=== PATIENT | male | born 1935 | race Caucasian/White ===

== ENCOUNTER 2024-01-11 01:38 | Emergency (ER) | payer MEDICARE, OTHER, SELFPAY ==
[2024-01-11] VITALS (13 sets, daily range): BP systolic 75–148; BP diastolic 45–137; PULSE 62–103; RESP 14–20; TEMP 36.6; O2SAT 96–100
--- NOTE | ~2024-01-11 | CT_ITS ---
CT head without contrast Indication: Trauma Technique: Serial scans were obtained through the brain without the administration of contrast. Dose reduction technique was used on this scan by utilizing automated exposure control and iterative recon struction technique. The dose-length product (DLP) was 756.67 mGy-cm. Findings: There is no evidence of intracranial hemorrhage, mass lesion, or acute infarct. The ventri cles and subarachnoid spaces are dilated, consistent with mild atrophy. 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 There is no evidence of edema, mass effect or midline shift. The visu alized paranasal sinuses and mastoid air cells are clear. Impression: No intracranial hemorrhage, mass, or acute infarct. Atrophy and chronic white matter changes, as above. Reviewed, dictated and finalized at location . CHUTE RIGGER Impression: No intracranial hemorrhage, mass, or acute infarct. Atrophy and chronic white matter changes, as above.
--- NOTE | ~2024-01-11 | CT_ITS ---
CT Facial Bones and Cervical Spine Clinical Indication: Trauma Technique: Contiguous axial scans were obtained through the facial bones and cervical spine followed by coronal and sagittal reconstructions. Dose reduction technique was used on this scan by utilizing automated exposure control and iterative reconstruction technique. The dose-length product (DLP) was 606.00 mGy-cm. Findings: CT facial bones: No fractures are identified. The visualized paranasal sinuses are clear. Intraorbita l soft tissues appear normal. CT cervical spine: No acute fracture. There is minimal grade 1 anterolisthesis of C4 over C5, likely chronic. There is advanced degenerative disc narrowing throughout the cervical spine, especially at C 5-C6 and C6-C7. There is extensive facet arthropathy in the cervical spine, especially the right side at C2-C3 and C3-C4. There is right neural foraminal narrowing at C3-C4. There is left neural foramin al narrowing at C4-C5. There is bilateral neural foraminal narrowing at C5-C6 with probable minimal c anal stenosis. No prevertebral soft tissue swelling. Impression: No fracture is seen in the facial bones. No fracture or subluxation of the cervical spine. Degenerative spondylosis of the cervical spine, as above. Reviewed, dictated and finalized at location . WAGON OPERATOR Impression: No fracture is seen in the facial bones. No fracture or subluxation of the cervical spine. Degenerative spondylosis of the cervical spine, as above.
--- NOTE | 2024-01-11 01:50 | ED_ITS ---
HPI - General Adult General Chief complaint: Head Injury Stated complaint: TRIPPED, GLF, NASAL LAC,FOREHEAD HEMATOMA, LIP LAC Time Seen by Provider: 01/11/24 01:45 History of Present Illness HPI narrative: Patient is an 88-year-old male who presents to the emergency department this morning after a ground level fall that occurred at home. Patient states that he was in the bathroom and tripped falling face forward into a glass shower door. Denies any loss of consciousness. Admits that he does take Plavix. Patient is currently denying any pain or any additional injuries. Patient did sustain small hematoma to the forehead a complex laceration across his nose and nasal septum and upper lip. No additional symptoms or concerns at this time. Related Data Allergies Allergy/AdvReac Type Severity Reaction Status Date / Time No Known Allergies Allergy Verified 01/11/24 03:54 Review of Systems Review of Systems: All systems are reviewed and are negative unless stated otherwise in the HPI. Exam Narrative: General: Alert, awake, afebrile, in no acute distress. HEENT: PERRL, no rhinorrhea, no post nasal drip, oropharynx clear, hematoma to the soft tissue of the forehead, complex laceration to the right nasal cartilage extending through to the nasal septum, complex v-shaped laceration to the upper lip. Neck: Trachea midline, no JVD, no lymphadenopathy. Cardiovascular: Regular rate and rhythm, no murmurs, rubs or gallops, no peripheral edema. Respiratory: Clear to auscultation bilaterally, no tachypnea, no wheezing, no rhonchi, no rubs, no respiratory distress. Abdomen: Soft, nontender, nondistended, no rebound, no guarding, no peritoneal signs. Musculoskeletal: No joint swelling or deformity, normal muscle tone. Back: No midline tenderness to palpation over the cervical, thoracic or lumbar spine, no step-offs or deformities. Skin: No rashes or petechia, no signs of infection. Psychiatric: Alert and oriented, normal behavior and judgment for situation. Neurological: Alert and oriented to person, place, and time. Follows all commands. No focal deficits, speech is clear and fluent. Course Vital Signs Vital signs: Vital Signs Pulse Rate 98 01/11/24 01:41 Respiratory Rate 18 01/11/24 01:41 Blood Pressure 148/137 H 01/11/24 01:41 Pulse Oximetry 97 01/11/24 01:41 Oxygen Delivery Room Air 01/11/24 01:41 Pulse Rate 63 01/11/24 07:07 Respiratory Rate 18 01/11/24 07:07 Blood Pressure 98/60 L 01/11/24 07:07 Pulse Oximetry 98 01/11/24 07:07 Oxygen Delivery Room Air 01/11/24 01:41 Medical Decision Making MDM Narrative Medical decision making narrative: The patient was evaluated by myself in the emergency department. History is obtained from patient who is an independent historian and physical exam was performed. External medical records were reviewed at this time. IV was established and pertinent tests were ordered. Patient was administered a 1 L IV fluid bolus with normal saline due to a blood pressure of 86/45. Repeat blood pressure is 104/52 mmHg after 1 L bolus. Patient with continued on maintenance at a rate of 100 cc/hour. Imaging studies obtained included CT brain, CT cervical spine and CT facial bones without IV contrast which was independently interpreted by me revealing no acute bleed, fractures or dislocations, which is pending final radiology interpretation. Differential diagnosis considerations include fractures, dislocations, intracranial hemorrhage, lacerations, abrasions. Comorbidities impacting this visit include none. I have evaluated and discussed social determinants of health with the patient that could potentially impact subsequent diagnosis and treatment plans. On repeat assessment of the patient, reevaluation revealed that the patient is doing well and is in no acute distress. Patient symptoms have improved since he arrived to our emergency department. Repeat vital signs were all reviewed and noted to be stable. Differential diagnosis and treatment plan were discussed with the patient at bedside. Patient agrees with discussion and after shared medical decision making agrees with transfer for ENT repair of his complex nasal laceration. All questions were answered to the patient's satisfaction. Diagnostic Radiologist transfer line was contacted at [phone] and I did speak with the on-call ED physician Dr. Brandt who accepted transfer as an ED to ED transfer. Patient and patient's who is currently present at bedside were updated and are agreeable with this. Patient is currently resting comfortably pending transfer to [facility]. Vital Signs Vital Signs: Vital Signs Pulse Rate 98 01/11/24 01:41 Respiratory Rate 18 01/11/24 01:41 Blood Pressure 148/137 H 01/11/24 01:41 Pulse Oximetry 97 01/11/24 01:41 Oxygen Delivery Room Air 01/11/24 01:41 Pulse Rate 63 01/11/24 07:07 Respiratory Rate 18 01/11/24 07:07 Blood Pressure 98/60 L 01/11/24 07:07 Pulse Oximetry 98 01/11/24 07:07 Oxygen Delivery Room Air 01/11/24 01:41 Discharge Plan Discharge Clinical Impression: Closed head injury, Facial trauma, Complex laceration of nose Patient Disposition: Acute Care Hospital Condition: Improved Follow-up/Referrals: Marlen,Bertha Montejo MD [Primary Care Provider] - Time of Disposition: 03:18
[2024-01-11] MEDS: SODIUM CHLORIDE 0.9% IV 1,000 ML 999 ML (02:47)
[2024-01-11] MEDS: TETANUS,DIPHTHERIA,AC PERTUSSIS ADULT (0.5 ML) BOOSTRIX IM (02:48)
--- NOTE | 2024-01-11 03:26 | PC.NURSE ---
Pt and pt asked if it would be possible for pt to be transferred to [facility] instead of [facility]. Pts states all of pts medical history is at [facility]. Dr. Garcia notifed, she states she will speak with pt.
--- NOTE | 2024-01-11 04:02 | PC.NURSE ---
Pt requested his sign consent for transfer, form signed by at [id number]
[2024-01-11] MEDS: SODIUM CHLORIDE 0.9% IV 1,000 ML 150 ML IV CONT (04:03)
--- NOTE | 2024-01-11 05:21 | PC.NURSE ---
Spoke with law secretary Dariana, she states ambulances ETA moved from [phone] to [phone]
--- NOTE | 2024-01-11 05:29 | PC.NURSE ---
Report called to [facility] at [phone]
== END 2024-01-11 11:42 | disposition short-term general hospital (02) ==
PROVIDERS: Emergency Provider Emergency Medicine; PCP Internal Medicine Rheumatology
DX: S01.21XA Laceration without foreign body of nose, initial encounter (principal); Z23 Encounter for immunization; Z79.02 Long term (current) use of antithrombotics/antiplatelets; M47.812 Spondylosis without myelopathy or radiculopathy, cervical region; W01.198A Fall on same level from slipping, tripping and stumbling with subsequent striking against other object, initial encounter
CPT/HCPCS: 70450; 70486; 72125; 90471; 90715; 96360; 96361; 99285; J7030

== ENCOUNTER 2024-02-12 10:59 | Emergency (ER) | payer MEDICARE, OTHER, SELFPAY ==
--- NOTE | 2024-02-12 11:04 | ED.EYEPROB ---
HPI - Eye Problem General Chief complaint: Eye Problems Stated complaint: Eye Problems Time Seen by Provider: 02/12/24 11:34 Source: patient and RN notes reviewed Mode of arrival: ambulatory Limitations: no limitations History of Present Illness HPI Narrative: 89-year-old male presents with concern for rash on the right side of his face, eyelid swelling and slightly blurry vision in the a right eye reports symptoms started yesterday. Reports the rash is slightly irritating. Denies general malaise, fever MD chief complaint: other (rash) Related Data Home Medications ?Medication ?Instructions ?Recorded ?Confirmed ?Last Taken ?Type acetaminophen 325 mg tablet 650 mg PO Q6H PRN Pain 01/21/24 01/21/24 Unknown History cholecalciferol (vitamin D3) 25 50 mcg PO DAILY 01/21/24 01/21/24 01/21/24 08:18 History mcg (1,000 unit) tablet cyanocobalamin (vitamin B-12) 500 500 mcg PO DAILY 01/21/24 01/21/24 01/21/24 08:10 History mcg tablet ferrous sulfate 325 mg (65 mg 325 mg PO QNOON 01/21/24 01/21/24 01/20/24 13:16 History iron) tablet melatonin 3 mg tablet 3 mg PO HS PRN Insomnia 01/21/24 01/21/24 01/20/24 19:35 History sennosides 8.6 mg-docusate sodium 1 tablet PO DAILY 01/21/24 01/21/24 01/21/24 08:11 History 50 mg tablet (Senna-S) sodium chloride 0.65 % nasal spray 1 spray intranasal Q1H PRN Dry Nose 01/21/24 01/21/24 Unknown History aerosol (Saline Nasal) trazodone 100 mg tablet 100 mg PO HS 01/21/24 01/21/24 01/20/24 19:35 History esomeprazole magnesium 20 mg mg 02/12/24 Unknown History capsule,delayed release evolocumab 140 mg/mL subcutaneous mg subcut 02/12/24 Unknown History syringe (Repatha Syringe) Allergies Allergy/AdvReac Type Severity Reaction Status Date / Time apixaban Allergy Itching Verified 02/12/24 11:23 hydrochlorothiazide Allergy Unknown Verified 02/12/24 11:23 [id number] Reductase Allergy Muscle Pain Verified 02/12/24 11:23 Inhibitor Review of Systems Review of Systems: CONSTITUTIONAL: Denies malaise, chills, sweats, or fever. EYES: Reports blurry vision in the right eye, right eyelid redness and swelling ENT: Denies rhinorrhea, congestion, sinus pain, otalgia or sore throat. SKIN: Reports rash on the right side of the face NEUROLOGIC: Denies numbness, weakness, or headache. PSYCHIATRIC: Denies anxiety or depression. All systems reviewed & are unremarkable except as noted in HPI and below PMFSH Past Medical History Medical History Impaired cognition Family History Family History Other Unknown family medical history Social History Social History Smoking status: Never smoker Alcohol intake: never Substance use: never Substance use type: does not use Do You Feel Safe in your Home?: Yes Lack of Transportation: No Lack of Food: Never True Current Housing: I Have Housing Concerned About Future Housing: No Difficulty Paying Gas/Electric Bills: No Difficulty Paying for Meds: No Currently Unemployed: No Education: High School Diploma/GED Difficulty w/ Childcare or Family Care: No Spiritual care concerns: No Comments At time of signature, agree with nursing past medical, surgical, social and family history. There is no relevant family history pertinent to the presenting complaint Exam Narrative: GENERAL: Well-appearing, well-nourished, and in no acute distress. HEAD: Normocephalic, atraumatic. EYES: PERRLA, sclera clear, and EOMI. Right conjunctivae injected. Right Upper and lower eyelid mildly erythematous and edematous ENT: Nares clear, turbinates pink, no rhinorrhea or epistaxis. Mucous membranes moist. TM pearly chung with sharp light reflex bilaterally; no tragal tenderness. NECK: Supple. CHEST: No respiratory distress. Speaks in full sentences. HEART: Regular rate and rhythm. SKIN: Warm, dry vesicular rash noted to the right forehead, congregational, cheek, nose, not crossing midline at any point on the face NEURO: Alert and oriented x3. PSYCH: Normal mood and affect Course Course Emergency Course: Patient is aware of diagnosis, understands and agrees to treatment plan. Anticipatory guidance given. Patient agrees to follow-up as directed and is aware of reasons to seek care at the emergency department. Portions of this record may have been created with voice recognition software Level of Care: Express Care Visit Vital Signs Vital signs: Reviewed. MDM - Eye Problem MDM Narrative Medical decision making narrative: Consideration of the following conditions may be warranted for the presenting problem, they are not final diagnoses: Bacterial conjunctivitis, allergic conjunctivitis, viral conjunctivitis, foreign body, blepharitis, chalazion, hordeolum, corneal abrasion, preseptal cellulitis, orbital cellulitis, shingles, cellulitis, bacterial infection, dermatitis. No evidence of proptosis, ophthalmoplegia, vision loss, pain with eye movement. Exam findings show no acute concerns or changes; patient is non-toxic appearing and is in no distress. Patient is appropriate for outpatient treatment and follow-up. Critical Care Time Critical Care Time Critical Care Time: No Discharge Plan Discharge Clinical Impression: Shingles Patient Disposition: Home, Self-Care Condition: Stable Instructions: Shingles (ED) Additional Instructions: Take Tylenol as needed for pain, body aches, fever. Take medication as prescribed Shingles pain can last weeks. If your pain persists after antiviral medication is complete please follow-up with your primary care provider for a long-term pain control plan. Follow-up with your doctor in the next 2 to 3 days. Go to the emergency room if you have any urgent concerns. Patient Language: Sinhala Prescriptions: New valacyclovir 1 gram tablet 1,000 mg PO DAILY 7 Days Qty: 7 0RF No Action esomeprazole magnesium 20 mg capsule,delayed release(DR/EC) Repatha Syringe 140 mg/mL syringe SUBCUT acetaminophen 325 mg Tablet 650 mg PO Q6H PRN (Reason: Pain) sennosides-docusate sodium [Senna-S] 8.6-50 mg Tablet 1 tablet PO DAILY melatonin 3 mg Tablet 3 mg PO HS PRN (Reason: Insomnia) cyanocobalamin (vitamin B-12) 500 mcg Tablet 500 mcg PO DAILY trazodone 100 mg Tablet 100 mg PO HS ferrous sulfate 325 mg (65 mg iron) Tablet 325 mg PO QNOON Rx Instructions: Give after lunch Saline Nasal 0.65 % Aerosol,[place] 1 spray INTRANASAL Q1H PRN (Reason: Dry Nose) cholecalciferol (vitamin D3) 25 mcg (1,000 unit) Tablet 50 mcg PO DAILY losartan 25 mg Tablet 12.5 mg PO BID 30 Days Qty: 30 0RF carvedilol 12.5 mg Tablet 12.5 mg PO BID Qty: 60 0RF Rx Instructions: must administer with a meal/food Follow-up/Referrals: PHYSICIAN,TRAINING ENGINEER [Primary Care Provider] - Time of Disposition: 11:44
[2024-02-12 11:19] VITALS: BP 99/73; PULSE 68; RESP 16; TEMP 37.2; O2SAT 97
== END 2024-02-12 11:46 | disposition home or self-care (01) ==
PROVIDERS: Emergency Provider Nurse Practitioner
DX: B02.9 Zoster without complications (principal)
CPT/HCPCS: 99213; G0463

== ENCOUNTER 2024-02-14 12:51 | Emergency (ER) | payer MEDICARE, OTHER, SELFPAY ==
--- NOTE | ~2024-02-14 | XR_ITS ---
EXAMINATION: XR chest 2V Exam Date/Time: 02/14/2024 17:45 BAG CUTTER HISTORY: WEAKNESS Comparison: None. RESULT: Lines, tubes, and devices: Intact sternotomy wires. Mediastinal surgical clips. Partially visualized left shoulder arthroplasty hardware. Lungs and pleura: Mild diffuse reticular opacities and patchy scattered groundglass opacities. Subse gmental airspace disease in the bilateral lower lungs. Mild bilateral costophrenic angle blunting. Cardiomediastinal silhouette: Stable. Other: No acute osseous or upper abdominal finding. Severe degenerative change in the right shoulder . IMPRESSION: Pulmonary opacities likely represent mild pulmonary edema, with likely small bilateral effusions. Seg mental bibasilar atelectasis/consolidation. Reviewed, dictated and finalized at location K. CUTTER IMPRESSION: Pulmonary opacities likely represent mild pulmonary edema, with likely small bi lateral effusions. Segmental bibasilar atelectasis/consolidation.
--- NOTE | ~2024-02-14 | CT_ITS ---
EXAMINATION: CT orbit BI w con DATE: 02/14/2024 18:20 INDICATION: R eye swelling/pain . TECHNIQUE: Computed tomography (CT) of the facial bones and maxillofacial region was performed withou t intravenous contrast. Automated exposure control and iterative reconstruction technique were employ ed. The dose-length product was 287.11 mGy-cm. COMPARISON: None. FINDINGS: Soft Tissues: Soft tissue swelling over the right orbit, right cheek and right parotid. Facial bones: No acute fracture. No lytic or blastic process. Eyes: The globes are intact. The soft tissue planes of the orbits are maintained. Paranasal Sinuses: Mild mucosal thickening in the right maxillary sinus. Foreign Bodies: No radiopaque foreign bodies. Other Findings: Periapical lucency with cortical breakthrough involving the root of a right maxillary premolar, without definite adjacent fluid collection noting that there is obscuration from metal art ifact. IMPRESSION: Right periorbital/preseptal cellulitis and/or edema, with associated swelling of the right cheek. Inflammatory changes extend into or from the right parotid gland, correlate for clinical findings of parotiditis. Periodontal disease. No definite odontogenic abscess detected. Reviewed, dictated and finalized at location K. CE PROFESSIONAL IMPRESSION: Right periorbital/preseptal cellulitis and/or edema, with associated swelling o f the right cheek. Inflammatory changes extend into or from the right parotid gland, correlate for clinical findings of parotiditis. Periodontal disease. No definite odontogenic abscess detected.
--- NOTE | ~2024-02-14 | CT_ITS ---
EXAMINATION: CT brain wo con DATE: 02/14/2024 18:20 INDICATION: AMS . TECHNIQUE: Computed tomography (CT) of the head was performed without intravenous contrast. The mA wa s adjusted according to patient size. Iterative reconstruction technique was employed. The dose-lengt h product was 681.00 mGy-cm. COMPARISON: 02/14/2024. FINDINGS: No acute intracranial hemorrhage or extra-axial fluid collection. No hydrocephalus, mass, or herniation. No acute ischemic infarct. Unremarkable dural venous sinus attenuation. No acute osseous abnormality. Soft tissue swelling over the right orbit and right carotid. The aerated spaces are clear. Moderate atrophy and chronic white matter change. Atherosclerotic intracranial calcification. Bilater al lens replacements. IMPRESSION: No acute intracranial process. Reviewed, dictated and finalized at location K. ANALYSIS WELL LOGGING OPERATOR
[2024-02-14 13:05] VITALS: BP 117/73; PULSE 73; RESP 16; TEMP 36.6; O2SAT 100
--- NOTE | 2024-02-14 14:19 | PC.NURSE ---
pt spouse states that home health nurse said he needed to be evaluated due to a rapid decline in ADLs shingles to the right face, increased lethargy and weakness, incontinence. patient not eating or drinking well at home. patient was diagnosed with shingles on Wednesday.
[2024-02-14 16:01] LABS: Basophils Percent Auto 0.5 % (0.2-1.2); Eosinophils Percent Auto 0.5 % (0-4.4); Hematocrit 30.7 % (42.0-52.0); Hemoglobin 9.6 g/dL (14.0-18.0); Immature Granulocyte Absolute 0.02 K/mm3 (0.00-0.031); Immature Granulocyte Percent A 0.3 % (0-0.5); Lymphocytes Absolute Auto 1.38 K/mm3 (0.9-3.2); Mean Corpuscular HGB Conc 31.3 g/dl (32-36); Mean Corpuscular Volume 89.5 fl (80-100); Mean Platelet Volume 8.9 fl (7.4-10.4); Monocytes Absolute Auto 0.9 K/mm3 (0.1-0.6); Monocytes Percent Auto 15.2 % (2.6-8.5); Neutrophils Absolute Auto 3.4 K/mm3 (1.3-6.7); Neutrophils Percent Auto 59.5 % (45.5-73.1); Platelet Count Result 275 k/mm3 (150-375); Red Blood Count 3.43 M/mm3 (4.6-6.20); White Blood Count 5.7 K/mm3 (4.5-10.0)
[2024-02-14 16:05] LABS: Add Urine Microscopic? YES; Appearance Urine Clear (Clear); Bacteria Urine None Seen /hpf; Bilirubin Urine Negative (Negative); Blood Urine Negative (Negative); Color Urine Yellow (Yellow); Glucose Urine UA Negative (Negative); Ketones Urine Negative (Negative); Leukocyte Esterase Ur Negative LEU/UL (Negative); Nitrate Urine Negative (Negative); Non Pathogenic Casts 0-2; Protein Urine 1+ mg/dL (Negative); Specific Grav Ur 1.022 (1.001-1.035); Squamous Epithelial Cell Urine None Seen /hpf (Few); Urobilinogen Urine 0.2 mg/dL (<2.0); WBC Urine 0-5 /hpf (0-3); pH Urine 5.5 (5.0-9.0)
[2024-02-14 16:09] LABS: Alanine Aminotransferase 10 U/L (6-50); Albumin Level 3.3 g/dL (3.5-5.1); Alkaline Phosphatase 67 U/L (38-126); Anion Gap 2 mmol/L (4-12); Aspartate Amino Transferase 20 U/L (17-59); Bilirubin,Total 0.5 mg/dL (0.2-1.3); Blood Urea Nitrogen 20 mg/dL (9-20); Calcium 8.6 mg/dL (8.4-10.2); Carbon Dioxide 27 mmol/L (22-30); Chloride 103 mmol/L (98-107); Estimated Glomerular Filt Rate 41; Glucose 104 mg/dL (65-110); Potassium 4.5 mmol/L (3.4-5.0); Sodium 132 mmol/L (137-145)
--- NOTE | 2024-02-14 17:28 | ED_ITS ---
HPI - General Adult General Chief complaint: Urogenital-Male Stated complaint: uti Time Seen by Provider: 02/14/24 14:21 History of Present Illness HPI narrative: 89-year-old male presenting with generalized weakness. His is at bedside and helps with the history. States that he was recently at a rehab facility after a fall. He came home about a week ago and since that time has had a decline especially over the last couple of days. States that he has weak and has been having trouble with his walker. He is on a new modified diet and has not been drinking the thickened fluids but he is still eating. States that he was diagnosed with shingles 2 days ago by Urgent Care and started on valacyclovir. States that then they spoke to his eye doctor who started him on erythromycin ointment. States that he continues to have swelling around the right eye and some discomfort with extraocular eye movements. No further complaints. Related Data Home Medications ?Medication ?Instructions ?Recorded ?Confirmed ?Last Taken ?Type acetaminophen 325 mg tablet 650 mg PO Q6H PRN Pain 01/21/24 01/21/24 Unknown History cholecalciferol (vitamin D3) 25 50 mcg PO DAILY 01/21/24 01/21/24 01/21/24 08:18 History mcg (1,000 unit) tablet cyanocobalamin (vitamin B-12) 500 500 mcg PO DAILY 01/21/24 01/21/24 01/21/24 08:10 History mcg tablet ferrous sulfate 325 mg (65 mg 325 mg PO QNOON 01/21/24 01/21/24 01/20/24 13:16 History iron) tablet melatonin 3 mg tablet 3 mg PO HS PRN Insomnia 01/21/24 01/21/24 01/20/24 19:35 History sennosides 8.6 mg-docusate sodium 1 tablet PO DAILY 01/21/24 01/21/24 01/21/24 08:11 History 50 mg tablet (Senna-S) sodium chloride 0.65 % nasal spray 1 spray intranasal Q1H PRN Dry Nose 01/21/24 01/21/24 Unknown History aerosol (Saline Nasal) trazodone 100 mg tablet 100 mg PO HS 01/21/24 01/21/24 01/20/24 19:35 History esomeprazole magnesium 20 mg mg 02/12/24 Unknown History capsule,delayed release evolocumab 140 mg/mL subcutaneous mg subcut 02/12/24 Unknown History syringe (Repatha Syringe) Allergies Allergy/AdvReac Type Severity Reaction Status Date / Time apixaban Allergy Itching Verified 02/12/24 11:23 hydrochlorothiazide Allergy Unknown Verified 02/12/24 11:23 [id number] Reductase Allergy Muscle Pain Verified 02/12/24 11:23 Inhibitor Review of Systems 2 Review of Systems: All systems reviewed & are unremarkable except as noted in HPI and below PMFSH Past Medical History Medical History Impaired cognition Family History Family History Other Unknown family medical history Social History Social History Smoking status: Never smoker Alcohol intake: never Substance use: never Substance use type: does not use Do You Feel Safe in your Home?: Yes Lack of Transportation: No Lack of Food: Never True Current Housing: I Have Housing Concerned About Future Housing: No Difficulty Paying Gas/Electric Bills: No Difficulty Paying for Meds: No Currently Unemployed: No Education: High School Diploma/GED Difficulty w/ Childcare or Family Care: No Spiritual care concerns: No Exam 2 Narrative: GENERAL: Chronically ill-appearing, no acute distress HEAD: Normocephalic, atraumatic. EYES: PERRLA and EOMI. Fluorescein stain shows no abrasions or corneal lacerations ENT: right eye with periorbital edema, injected conjunctiva NECK: Supple. CHEST: No respiratory distress. HEART: Regular rate and rhythm EXTREMITIES: Normal range of motion. No edema. SKIN: Warm, dry, no rash. NEURO: Alert and oriented x3. PSYCH: Normal mood and affect. Course Vital Signs Vital signs: Vital Signs Temperature 97.8 F 02/14/24 13:05 Pulse Rate 73 02/14/24 13:05 Respiratory Rate 16 02/14/24 13:05 Blood Pressure 117/73 02/14/24 13:05 Pulse Oximetry 100 02/14/24 13:05 Temperature 97.8 F 02/14/24 13:05 Pulse Rate 86 02/14/24 18:48 Respiratory Rate 16 02/14/24 18:48 Blood Pressure 166/80 H 02/14/24 18:48 Pulse Oximetry 100 02/14/24 18:48 Medical Decision Making MDM Narrative Medical decision making narrative: 89-year-old male presenting with generalized weakness and right eye swelling and pain. Fluorescein stain shows no corneal abrasions, ulcers, lacerations. CT brain and bilateral orbits shows right-sided periorbital cellulitis and parotiditis. Blood work without significant abnormalities. Baseline CKD is noted. Will start the patient on Augmentin and bactrim for periorbital cellulitis. Discussed appropriate supportive care and return precautions. Recommend close PCP and Ophthalmology follow-up. Patient and his are agreeable with this plan. Discharged in stable condition. Medical Records Medical records reviewed: Yes I reviewed the external patient's medical records. Vital Signs Vital Signs: Vital Signs Temperature 97.8 F 02/14/24 13:05 Pulse Rate 73 02/14/24 13:05 Respiratory Rate 16 02/14/24 13:05 Blood Pressure 117/73 02/14/24 13:05 Pulse Oximetry 100 02/14/24 13:05 Temperature 97.8 F 02/14/24 13:05 Pulse Rate 86 02/14/24 18:48 Respiratory Rate 16 02/14/24 18:48 Blood Pressure 166/80 H 02/14/24 18:48 Pulse Oximetry 100 02/14/24 18:48 Lab Data Lab results reviewed: Yes I reviewed the patient's lab results. 02/14/24 15:51 02/14/24 15:51 Labs: Lab Results 02/14/24 Range/Units 15:51 WBC 5.7 (4.5-10.0) K/mm3 RBC 3.43 L (4.6-6.20) M/mm3 Hgb 9.6 L (14.0-18.0) g/dL Hct 30.7 L (42.0-52.0) % MCV 89.5 (80-100) fl MCH 28.0 (26-34) pg MCHC 31.3 L (32-36) g/dl RDW 16.0 H (11.5-14.5) % Plt Count 275 (150-375) k/mm3 MPV 8.9 (7.4-10.4) fl Immature Gran % (Auto) 0.3 (0-0.5) % Neut % (Auto) 59.5 (45.5-73.1) % Lymph % (Auto) 24.0 (18.3-44.2) % [place] % (Auto) 15.2 H (2.6-8.5) % Eos % (Auto) 0.5 (0-4.4) % Baso % (Auto) 0.5 (0.2-1.2) % Lymph # (Auto) 1.38 (0.9-3.2) K/mm3 [place] # (Auto) 0.9 H (0.1-0.6) K/mm3 Eos # (Auto) 0.0 (0-0.3) K/mm3 Baso # (Auto) 0.0 (0.0-0.1) K/mm3 Abs Immat Gran (auto) 0.02 (0.00-0.031) K/mm3 Absolute Neuts (auto) 3.4 (1.3-6.7) K/mm3 Absolute Nucleated RBC 0.000 (0.0-0.012) K/mm3 Nucleated RBC % 0.0 (0.0-0.2) % Sodium 132 L (137-145) mmol/L Potassium 4.5 (3.4-5.0) mmol/L Chloride 103 (98-107) mmol/L Carbon Dioxide 27 (22-30) mmol/L Anion Gap 2 L (4-12) mmol/L BUN 20 (9-20) mg/dL Creatinine 1.60 H (0.7-1.3) mg/dL Estim Creat Clear Calc Not Reportable Estimated GFR 41 L (59 - ) Glucose 104 (65-110) mg/dL Calcium 8.6 (8.4-10.2) mg/dL Total Bilirubin 0.5 (0.2-1.3) mg/dL AST 20 (17-59) U/L ALT 10 (6-50) U/L Alkaline Phosphatase 67 (38-126) U/L Total Protein 6.0 L (6.3-8.2) g/dL Albumin 3.3 L (3.5-5.1) g/dL Urine Color Yellow (Yellow) Urine Appearance Clear (Clear) Urine pH 5.5 (5.0-9.0) Ur Specific [place] 1.022 (1.001-1.035) Urine Protein 1+ H (Negative) mg/dL Urine Glucose (UA) Negative (Negative) mg/dL Urine Ketones Negative (Negative) mg/dL Ur Blood (Man) Negative (Negative) Urine Nitrate Negative (Negative) Urine Bilirubin Negative (Negative) Urine Urobilinogen 0.2 (<2.0) mg/dL Leukocyte Esterase Rfl Negative (Negative) ROXANNE/UL Urine RBC 3-5 H (0-2) /hpf Urine WBC 0-5 (0-3) /hpf Ur Squamous Epith Cells None seen (Few) /hpf Urine Bacteria None seen /hpf Urine Casts 0-2 Imaging Data Radiologist's impression: ITS Impressions Chest X-Ray 02/14/24 18:09 IMPRESSION: Pulmonary opacities likely represent mild pulmonary edema, with likely small bilateral effusions. Segmental bibasilar atelectasis/consolidation. Head CT 02/14/24 18:26 IMPRESSION: No acute intracranial process. Orbit CT 02/14/24 18:28 IMPRESSION: Right periorbital/preseptal cellulitis and/or edema, with associated swelling of the right cheek. Inflammatory changes extend into or from the right parotid gland, correlate for clinical findings of parotiditis. Periodontal disease. No definite odontogenic abscess detected. Critical Care Time Critical Care Time Critical Care Time: No Discharge Plan Discharge Clinical Impression: Periorbital cellulitis of right eye, Parotiditis Patient Disposition: Home, Self-Care Condition: Stable Instructions: Antibiotic Form, Periorbital Cellulitis (ED) Additional Instructions: the imaging today shows an infection involving the right side of your face around your eye and cheek. Please take the antibiotics as prescribed. Follow- up closely with your PCP and eye doctor. If your symptoms worsen or other concerning symptoms arise, please return to the ER. Patient Language: Welsh Prescriptions: New amoxicillin-pot clavulanate 875-125 mg tablet 1 tablet PO Q12H 7 Days Qty: 14 0RF sulfamethoxazole-trimethoprim [Bactrim DS] 800-160 mg tablet 1 tablet PO Q12H 7 Days Qty: 14 0RF No Action esomeprazole magnesium 20 mg capsule,delayed release(DR/EC) Repatha Syringe 140 mg/mL syringe SUBCUT valacyclovir 1 gram tablet 1,000 mg PO DAILY 7 Days Qty: 7 0RF acetaminophen 325 mg Tablet 650 mg PO Q6H PRN (Reason: Pain) sennosides-docusate sodium [Senna-S] 8.6-50 mg Tablet 1 tablet PO DAILY melatonin 3 mg Tablet 3 mg PO HS PRN (Reason: Insomnia) cyanocobalamin (vitamin B-12) 500 mcg Tablet 500 mcg PO DAILY trazodone 100 mg Tablet 100 mg PO HS ferrous sulfate 325 mg (65 mg iron) Tablet 325 mg PO QNOON Rx Instructions: Give after lunch Saline Nasal 0.65 % Aerosol,[place] 1 spray INTRANASAL Q1H PRN (Reason: Dry Nose) cholecalciferol (vitamin D3) 25 mcg (1,000 unit) Tablet 50 mcg PO DAILY losartan 25 mg Tablet 12.5 mg PO BID 30 Days Qty: 30 0RF carvedilol 12.5 mg Tablet 12.5 mg PO BID Qty: 60 0RF Rx Instructions: must administer with a meal/food Follow-up/Referrals: UNKNOWN,DOCTOR [Primary Care Provider] -
[2024-02-14] MEDS: SODIUM CHLORIDE 0.9% IV 1,000 ML 999 ML IV CONT (17:35)
--- NOTE | 2024-02-14 17:45 | PC.NURSE ---
Ordered eye medication and eye tray placed in pt. room for MD. MD Serrato notified.
[2024-02-14 18:48] VITALS: BP 166/80; PULSE 86; RESP 16; O2SAT 100
[2024-02-14 19:50] VITALS: BP 155/70; PULSE 85; RESP 16; O2SAT 98
--- NOTE | 2024-02-14 19:59 | PC.NURSE ---
nursing techn to bedside to place thumb spica splint.
--- NOTE | 2024-02-14 20:10 | PC.NURSE ---
MD Serrato at bedside. Will administer antibiotics when MD is done.
[2024-02-14] MEDS: AMOXICILLIN/CLAVULANATE K 875-125 MG TAB 1 TABLET PO (20:36)
[2024-02-14] MEDS: SULFAMETHOXAZOLE/TRIMETHOPRIM 800/160 MG DS TABLET 1 TAB PO (20:37)
--- NOTE | 2024-02-14 20:59 | PC.NURSE ---
Pt. transferred to using gait belt by this RN. During transfer, pt sustained a small skin tear to L. forearm. Pt. has pitting edema to this extremity. Serosangenous fluid drained from skin tear. Fluid drainage stopped. Arm dressed with antibiotic ointment, non-adherent telfa, gauze and wrapped. aware and verbalized that she will keep skin tear clean and dry and will monitor.
== END 2024-02-14 21:09 | disposition home or self-care (01) ==
PROVIDERS: Emergency Provider Emergency Medicine
DX: L03.213 Periorbital cellulitis (principal); K11.20 Sialoadenitis, unspecified; R53.1 Weakness; B02.9 Zoster without complications
CPT/HCPCS: 36415; 70450; 70481; 71046; 80053; 81001; 85025; 99284; A9270; J7030; Q9967

== ENCOUNTER 2025-01-11 19:59 | Emergency (ER) | payer MEDICARE, OTHER, SELFPAY ==
[2025-01-11 20:45] VITALS: BP 135/70; PULSE 78; RESP 16; TEMP 36.7; O2SAT 97
[2025-01-11] MEDS: CELLULOSE OXIDIZED 2 x 14 INCH 2 PKT XX (21:32)
--- NOTE | 2025-01-11 21:35 | ED.GENADULT ---
HPI - General Adult General Chief complaint: Fall Stated complaint: Fall in driveway, arm abrasions Time Seen by Provider: 01/11/25 21:10 History of Present Illness HPI narrative: 89-year-old male presents to the emergency department for evaluation after having a ground level fall. Patient states he was taking the garbage out and tripped causing a skin tear to the left forearm, right elbow and hematoma to the right anterior razo. 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 Patient denies striking head denies any loss of consciousness. Related Data Home Medications ?Medication ?Instructions ?Recorded ?Confirmed ?Last Taken ?Type cholecalciferol (vitamin D3) 25 50 mcg PO DAILY 01/21/24 03/18/24 01/21/24 08:18 History mcg (1,000 unit) tablet cyanocobalamin (vitamin B-12) 500 500 mcg PO DAILY 01/21/24 03/18/24 01/21/24 08:10 History mcg tablet ferrous sulfate 325 mg (65 mg 325 mg PO QNOON 01/21/24 03/18/24 01/20/24 13:16 History iron) tablet melatonin 3 mg tablet 3 mg PO HS PRN Insomnia 01/21/24 03/18/24 01/20/24 19:35 History sennosides 8.6 mg-docusate sodium 1 tablet PO DAILY 01/21/24 03/18/24 01/21/24 08:11 History 50 mg tablet (Senna-S) trazodone 100 mg tablet 100 mg PO HS 01/21/24 03/18/24 01/20/24 19:35 History Allergies Allergy/AdvReac Type Severity Reaction Status Date / Time apixaban Allergy Intermediate hives, rash Verified 03/18/24 06:32 Review of Systems Review of Systems: All systems reviewed & are unremarkable except as noted in HPI and below PMFSH Past Medical History Medical History Chronic anemia Chronic kidney disease, stage 3 Gastroesophageal reflux disease Valvular heart disease Paroxysmal atrial fibrillation Dementia Hypertension Family History Family History Other Unknown family medical history Social History Social History Social History: Surrogate medical decision maker: Ceasar Bourgeois, spouse ([phone]). Code status: Do not resuscitate. Smoking status: Unknown if ever smoked Alcohol intake: never Substance use: never Substance use type: does not use Do You Feel Safe in your Home?: Yes Lack of Transportation: No Lack of Food: Never True Current Housing: I Have Housing Concerned About Future Housing: No Difficulty Paying Gas/Electric Bills: No Difficulty Paying for Meds: No Currently Unemployed: No Education: High School Diploma/GED Difficulty w/ Childcare or Family Care: No Spiritual care concerns: No Course Vital Signs Vital signs: Vital Signs Temperature 98.0 F 01/11/25 20:45 Pulse Rate 78 01/11/25 20:45 Respiratory Rate 16 01/11/25 20:45 Blood Pressure 135/70 01/11/25 20:45 Pulse Oximetry 97 01/11/25 20:45 Oxygen Delivery Room Air 01/11/25 20:45 Temperature 98.0 F 01/11/25 20:45 Pulse Rate 78 01/11/25 20:45 Respiratory Rate 16 01/11/25 20:45 Blood Pressure 135/70 01/11/25 20:45 Pulse Oximetry 97 01/11/25 20:45 Oxygen Delivery Room Air 01/11/25 20:45 Procedures Laceration Laceration 1: Date: 01/11/25 Site: upper extremity Side (If applicable): left Size (cm): 5 Description: flap (skin tear with heavy bleeding) Pre-repair: wound explored and irrigated ====== Skin Level ====== Skin layer closed with: steri strips Technique: other (Surgicel and Tefla dressing) ====== Subcutaneous Layer ====== ====== Muscle Layer ====== ====== Tendon Layer ====== Laceration 2: Date: 01/11/25 Site: upper extremity Side (If applicable): right Size (cm): 4 Description: flap (skin tear) Depth: simple, single layer Pre-repair: wound explored and irrigated ====== Skin Level ====== Skin layer closed with: steri strips ====== Subcutaneous Layer ====== ====== Muscle Layer ====== ====== Tendon Layer ====== Medical Decision Making MDM Narrative Medical decision making narrative: 89-year-old male presents emergency department for evaluation for skin tears and leg hematoma. Patient is alert and oriented at his baseline. Patient denies any recent illnesses. Patient does states this is a mechanical fall. Wounds were dressed. Family was encouraged to have close follow-up with the primary care physician. Differential Diagnosis Differential Diagnosis: Hematoma, skin tear, laceration Vital Signs Vital Signs: Vital Signs Temperature 98.0 F 01/11/25 20:45 Pulse Rate 78 01/11/25 20:45 Respiratory Rate 16 01/11/25 20:45 Blood Pressure 135/70 01/11/25 20:45 Pulse Oximetry 97 01/11/25 20:45 Oxygen Delivery Room Air 01/11/25 20:45 Temperature 98.0 F 01/11/25 20:45 Pulse Rate 78 01/11/25 20:45 Respiratory Rate 16 01/11/25 20:45 Blood Pressure 135/70 01/11/25 20:45 Pulse Oximetry 97 01/11/25 20:45 Oxygen Delivery Room Air 01/11/25 20:45 Discharge Plan Discharge Clinical Impression: Multiple skin tears, Hematoma Patient Disposition: Home Condition: Stable Instructions: Antibiotic Form, Skin Avulsion (ED), Hematoma (ED) Additional Instructions: Remove the Kerlix dressing in approximately 12 hours. Close follow-up with your primary care physician for a wound check. If you have any worsening symptoms please call or return to the emergency department. Patient Language: Polish Prescriptions: No Action furosemide [Lasix] 20 mg tablet 20 mg PO BID 30 Days Qty: 60 0RF sennosides-docusate sodium [Senna-S] 8.6-50 mg Tablet 1 tablet PO DAILY melatonin 3 mg Tablet 3 mg PO HS PRN (Reason: Insomnia) cyanocobalamin (vitamin B-12) 500 mcg Tablet 500 mcg PO DAILY trazodone 100 mg Tablet 100 mg PO HS ferrous sulfate 325 mg (65 mg iron) Tablet 325 mg PO QNOON Rx Instructions: Give after lunch cholecalciferol (vitamin D3) 25 mcg (1,000 unit) Tablet 50 mcg PO DAILY losartan 25 mg Tablet 12.5 mg PO BID 30 Days Qty: 30 0RF carvedilol 12.5 mg Tablet 12.5 mg PO BID Qty: 60 0RF Rx Instructions: must administer with a meal/food Follow-up/Referrals: PHYSICIAN NOT ON STAFF,NONSTAFF [Primary Care Provider]
--- OUTSIDE RECORDS SUMMARY | 2025-01-11 21:53 | XMS_ITS | Encounter Summary ---
Author Organization [facility] Address 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
--- OUTSIDE RECORDS SUMMARY | 2025-01-11 21:53 | XMS_ITS | Encounter Summary ---
Author Organization [facility] Address [address] [place] [address] Care Team Providers Care Pullman Car Clerk Name Role Phone Unavailable Primary Care Provider Unavailabl e Encounter Details Date Type Department Care Team (Late st Contact Info) Description 03/10/1999 Outpatient Historical [facility] Bertha Gee MD Social History Tobacco Use Types Packs/Day Years Used Date Smoking Tobacco: Never Assessed Sex and Gender Information Value Date Recorded Sex Assigned at Not on file Legal Sex Male 3:03 AM WARRANTY MANAGER Gender Identity Not on file Sexual Orientation Not on file documented as of this encounter Plan of Treatment Not on file documented as of this encounter Visit Diagnoses Not on filedocumented in this encounter
--- OUTSIDE RECORDS SUMMARY | 2025-01-11 21:53 | XMS_ITS | Encounter Summary ---
Author Organization [facility] Address [address] [place] [address] Care Team Providers Care Anodizer Name Role Phone Unavailable Primary Care Provider Unavailabl e Encounter Details Date Type Department Care Team (Late st Contact Info) Description 03/09/2000 Outpatient Historical [facility] Bertha Gee MD Social History Tobacco Use Types Packs/Day Years Used Date Smoking Tobacco: Never Assessed Sex and Gender Information Value Date Recorded Sex Assigned at Not on file Legal Sex Male 3:03 AM CUSTOMS BROKERAGE MANAGER Gender Identity Not on file Sexual Orientation Not on file documented as of this encounter Plan of Treatment Not on file documented as of this encounter Visit Diagnoses Not on filedocumented in this encounter
--- OUTSIDE RECORDS SUMMARY | 2025-01-11 21:53 | XMS_ITS | Encounter Summary ---
Author Organization [facility] Address [address] [place] [address] Care Team Providers Care Sap Hana Architect Name Role Phone Unavailable Primary Care Provider Unavailabl e Encounter Details Date Type Department Care Team (Late st Contact Info) Description 12/31/1998 Outpatient Historical [facility] Bertha Gee MD Social History Tobacco Use Types Packs/Day Years Used Date Smoking Tobacco: Never Assessed Sex and Gender Information Value Date Recorded Sex Assigned at Not on file Legal Sex Male 3:03 AM SIGNALS INTELLIGENCE ANALYSIS MANAGER Gender Identity Not on file Sexual Orientation Not on file documented as of this encounter Plan of Treatment Not on file documented as of this encounter Visit Diagnoses Not on filedocumented in this encounter
--- OUTSIDE RECORDS SUMMARY | 2025-01-11 21:53 | XMS_ITS | Encounter Summary ---
Author Organization [facility] Address [address] [place] [address] Care Team Providers Care High Pressure Boiler Operator Name Role Phone Unavailable Primary Care Provider Unavailabl e Encounter Details Date Type Department Care Team (Late st Contact Info) Description 12/04/1999 Outpatient Historical [facility] Bertha Gee MD Social History Tobacco Use Types Packs/Day Years Used Date Smoking Tobacco: Never Assessed Sex and Gender Information Value Date Recorded Sex Assigned at Not on file Legal Sex Male 3:03 AM LOSS CONTROL ENGINEER Gender Identity Not on file Sexual Orientation Not on file documented as of this encounter Plan of Treatment Not on file documented as of this encounter Visit Diagnoses Not on filedocumented in this encounter
--- OUTSIDE RECORDS SUMMARY | 2025-01-11 21:53 | XMS_ITS | Encounter Summary ---
Author Organization [facility] Address 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
--- OUTSIDE RECORDS SUMMARY | 2025-01-11 21:53 | XMS_ITS | Encounter Summary ---
Author Organization [facility] Address 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
--- OUTSIDE RECORDS SUMMARY | 2025-01-11 21:53 | XMS_ITS | Clinical Summary ---
Author Organization [facility] Address [address] 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
--- OUTSIDE RECORDS SUMMARY | 2025-01-11 21:53 | XMS_ITS | Encounter Summary ---
Author Organization [facility] Address 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
--- OUTSIDE RECORDS SUMMARY | 2025-01-11 21:54 | XMS_ITS | Encounter Summary ---
Author Organization [facility] Address 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
--- OUTSIDE RECORDS SUMMARY | 2025-01-11 21:54 | XMS_ITS | Clinical Summary ---
Author Organization [facility] Address [address] [address] Care Team Providers Care Lay Out Inspector Name Role Phone Provider, No Pcp Primary Care Provider Unavailab le Source Comments [facility],non-owned Affiliates and Associated Physician Practices is amultiple site organization consisting of ambulatory clinics and hospital sitesin [place], [place], [place] and [place]. This disclosure is being madepursuant to the Care Everywhere program and may not contain all information available regarding this patient. Last updated 17.[facility] Allergies Active Allergy Reactions Criticality Noted Date Comments Apixaban Urticaria Medium 01/12/2024 Hmg-Coa-R Inhibitors Myalgias 01/12/2024 Hydrochlorothiazide Unknown 01/12/2024 Medications * Be aware that medications may not be up to date on this document. Alwaysverify current medications with the patient. potassium chloride ER 10 MEQ tablet Take 1 (one) tablet by mouth once daily 4 Active prazosin (Minipress) 1 MG capsule Take 1 (one) capsule by mouth 2 times daily Active Nutritional Supplements (Ensure Plus High Protein) LIQD Take 1 container by mouth 3 times daily 4 Active dabigatran (praDAXA) 75 MG capsule Take 1 (one) capsule by mouth 2 times daily 4 Active carvedilol (Coreg) 12.5 MG tablet Take 1 (one) tablet by mouth 2 times daily 4 Active white petroleum (Vaseline) ointment Apply to affected area at bedtime 4 Active vitamin D3 (Cholecalcifero l) 25 MCG (1000 UNITS) tablet Take 2 (two) tablets by mouth once daily 4 Active ferrous sulfate 325 (65 FE) MG tablet Take 1 (one) tablet by mouth once daily after lunch 4 Active cyanocobalamin (Cyanocobalamin ) 500 MCG tablet Take 1 (one) tablet by mouth once daily 4 Active senna-docusate (Senokot-S) 8.6-50 MG tablet Take 1 (one) tablet by mouth once daily 4 Active traZODone (Desyrel) 100 MG tablet Take 1 (one) tablet by mouth at bedtime 4 Active losartan (Cozaar) 25 MG tablet Take 1 (one) tablet by mouth 2 times daily 4 Active aspirin (Aspirin) 81 MG chew tablet Take 1 (one) tablet by mouth once daily 4 Active acetaminophen (Tylenol) 325 MG tablet Take 2 (two) tablets by mouth every 6 hours as needed Maximum allowable Acetaminophen amount = 4 Grams (4000 mg) / 24 hours. 4 Active saline nasal spray ([place]man; Baby Lodi) 0.65 % nasal spray [place] 1 (one) spray into each nostril every 1 hour as needed for Dry Nose Active melatonin 3 MG tablet Take 1 (one) tablet by mouth nightly as needed for Insomnia 4 Active Active Problems Problem Noted Date Diagnosed Date Severe protein-calorie malnutrition 01/19/2024 Concussion 01/18/2024 Acute blood loss anemia 01/16/2024 Agitation 01/16/2024 Impaired mobility and ADLs 01/16/2024 Dysphagia 01/16/2024 Acute encephalopathy 01/16/2024 Atrial fibrillation with RVR 01/15/2024 Shortness of breath 01/15/2024 Delirium 01/14/2024 MANJIT (acute kidney injury) 01/12/2024 Melena 01/11/2024 Fall, initial encounter 01/11/2024 Laceration of nose, initial encounter 01/11/2024 Anemia requiring transfusions 01/11/2024 Social History Tobacco Use Types Packs/Day Years Used Date Smoking Tobacco: Never Smokeless Tobacco: Never Tobacco Cessation:Counseling Given: Not Answered Alcohol Use Standard Drinks/Week Comments Not Currently 0 (1 standard drink = 0.6 oz pur e alcohol) AUDIT-C Answer Date Recorded Q1: How often do you have a drink containing alcohol? Never 01/12/2024 Q2: How many drinks containi ng alcohol do you have on a typical day when you are drinking? Patient does not drink Q3: How often do you have si x or more drinks on one occasion? Never 01/12/2024 Overall Financial Resource Strain (CARDIA) Answe r Date Recorded How hard is it for you to pa y for the very basics like food, housing, medical care, and heating? Not hard at all 01/12/2024 [facility] - Occupational Stress Questionnaire Answer Date Recorded Do you feel stress - tense, restless, nervous, or anxious, or unable to sleep at night because your mind is troubled all the time - these days? Only a little 01/12/2024 Hunger Vital Sign Answer Date Recorded Within the past 12 months, y ou worried that your food would run out before you got the money to buy more. Never true 01/12/20 24 Within the past 12 months, t he food you bought just didn't last and you didn't have money to get more. Never true 01/12/2024 PRAPARE - Transportation Answer Date Re corded In the past 12 months, has l ack of transportation kept you from medical appointments or from getting medications? No 12/24 In the past 12 months, has l ack of transportation kept you from meetings, work, or from getting things needed for daily living? No 01/12/2024 Housing Stability Vital Sign Answer Elliot e Recorded In the last 12 months, was t here a time when you were not able to pay the mortgage or rent on time? No 01/12/2024 In the past 12 months, how m any times have you moved where you were living? 1 01/12/2024 At any time in the past 12 m [facility], were you homeless or living in a skilled nursing (including now)? No 01/12/2024 Sex and Gender Information Value Date Recorded Sex Assigned at Not on file Legal Sex Male 3:05 PM ROTARY DRUM TANNER Gender Identity Not on file Sexual Orientation Not on file Last Filed Vital Signs Vital Sign Reading Time Taken Comments Blood Pressure 119/57 01/21/2024 7:20 AM ROTARY DRUM TANNER Pulse 68 01/21/2024 7:20 AM ROTARY DRUM TANNER Temperature 36.2 C (97.2 F) 01/21/2024 7:20 AM ROTARY DRUM TANNER Respiratory Rate 18 01/21/2024 7:20 AM ROTARY DRUM TANNER Oxygen Saturation 98% 01/21/2024 7:20 AM ROTARY DRUM TANNER Inhaled Oxygen Concentration - - Weight 94.8 kg (209 lb) 01/17/2024 7:30 AM ROTARY DRUM TANNER Height 182.9 cm (6') 01/17/2024 7:30 AM ROTARY DRUM TANNER Body Mass Index 28.35 01/17/2024 7:30 AM ROTARY DRUM TANNER Plan of Treatment Health Maintenance Due Date Last Done Comments MEDICARE AWV 12 MONTHS 1935 DTAP/TDAP/TD VACCINES (1 - Tdap) 1954 PNEUMOCOCCAL VACCINE 50+ (1 of 2 - PCV) 1954 ZOSTER VACCINE (1 of 2) 1985 Respiratory Syncytial Virus (RSV) Vaccine Pt: or over 60 yrs (1 - 1-dose 75+ series) 2010 DEPRESSION SCREENING 02/23/2024 COVID-19 VACCINE ( season) 2024 02/05/2021, 12/05/2020, 04/18/2020, Additional history exists INFLUENZA VACCINE (#1) 2024 , 11/08/2023, 11/06/2022, Additional history exists HEPATITIS B VACCINE Aged Out No longe r eligible based on patient's age to complete this topic HIB VACCINE Aged Out No longer eligi ble based on patient's age to complete this topic HPV VACCINE Aged Out No longer eligi ble based on patient's age to complete this topic MENINGOCOCCAL (Group B) VACCINE SHARED DECISION-MAKING Aged Out No longer eligible based on patient's age to complete this topic MENINGOCOCCAL GROUPS A/C/Y/W VACCINE Aged Out No longer eligible based on patient's age to complete this topic Insurance MEDICARE [facility] MEDICARE Advance Directives Documents on File Type Date Recorded Patient Heel Stainer Expl anation Adv Directive/Living Will/POA 01/24/2024 11:30 AM * LIMITED RESUSCITATION-PRIOR AND AFTER ARREST (Latest Code Status on File) Date Activated Date Inactivated Comments 01/17/2024 4:58 PM 01/21/2024 3:29 PM Question Answer Comments Limited Resuscitation: No Chest Compress ionNo Intubation, No Invasive Ventilation * DNR - IF PULSELESS NO CPR, NO SHOCK Date Activated Date Inactivated Comments 01/16/2024 11:43 AM 01/17/2024 4:58 PM Question Answer Comments : DO NOT discontinue a ny active orders without asking attending physician. * Full Code Date Activated Date Inactivated Comments 01/12/2024 1:14 AM 01/16/2024 11:43 AM Care Teams Lay Out Inspector Relationship Specialty Start Date End Date Provider, No Pcp PCP - General 01/10/24
--- OUTSIDE RECORDS SUMMARY | 2025-01-11 21:54 | XMS_ITS | Encounter Summary ---
Author Organization [facility] Address 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
--- OUTSIDE RECORDS SUMMARY | 2025-01-11 21:54 | XMS_ITS | Encounter Summary ---
Author Organization [facility] Address 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
[2025-01-11 22:15] VITALS: BP 130/70; PULSE 70; RESP 18; O2SAT 99
== END 2025-01-11 22:15 | disposition home or self-care (01) ==
LOC: ANHED 21:51
PROVIDERS: Emergency Provider Emergency Medicine
DX: S51.812A Laceration without foreign body of left forearm, initial encounter (principal); S51.011A Laceration without foreign body of right elbow, initial encounter; S80.11XA Contusion of right lower leg, initial encounter; F03.90 Unspecified dementia, unspecified severity, without behavioral disturbance, psychotic disturbance, mood disturbance, and anxiety; I12.9 Hypertensive chronic kidney disease with stage 1 through stage 4 chronic kidney disease, or unspecified chronic kidney disease; N18.30 Chronic kidney disease, stage 3 unspecified; I48.0 Paroxysmal atrial fibrillation; I38 Endocarditis, valve unspecified; D64.9 Anemia, unspecified; K21.9 Gastro-esophageal reflux disease without esophagitis; Z66 Do not resuscitate; Z86.73 Personal history of transient ischemic attack (TIA), and cerebral infarction without residual deficits; Z79.01 Long term (current) use of anticoagulants; Z79.899 Other long term (current) drug therapy; W01.0XXA Fall on same level from slipping, tripping and stumbling without subsequent striking against object, initial encounter
CPT/HCPCS: 99282